=== PATIENT | male | born 1985 | race Caucasian/White ===

== ENCOUNTER 2016-08-27 03:27 | Emergency (ER) | payer BC, OTHER ==
[~2016-08-27] VITALS: Ht 172.7 cm; Wt 100.5 kg
[~2016-08-27 03:27] MED LIST: ASPI-650 PO; RANI-347 PO
[2016-08-27 03:29] VITALS: Ht 172.7 cm; Wt 100.5 kg
[2016-08-27] MEDS ORDERED: IBUP800T25 PO (03:42)
[2016-08-27] MEDS ORDERED: CYCL-319 PO (03:42)
--- NOTE | 2016-08-27 03:47 | ERD ---
ER Documentation Chief Complaint Date/Time DATE: 08/27/16 TIME: 03:46 Chief Complaint low back pain x 1 week, denies in jury HPI This is a 31-year-old male who has history of diabetes type 2 presenting to emergency department complaining of lumbar back pain for the past week. Patient rates the pain 9 out of 10 with certain movements. Patient states that he is able to ambulate. He denies any trauma or injury. Patient states that he tried ibuprofen 600 mg an hour prior to being seen without any relief.. Denies bladder or bowel incontinence. Denies any saddle anesthesia ROS All systems reviewed and are negative except as per history of present illness. Medications Home Meds Active Scripts Cyclobenzaprine Hcl* (Cyclobenzaprine Hcl*) 10 Mg Tablet, 10 MG PO Q8 Y for MUSCLE SPASMS, #30 TAB Prov:NADEGE ESTEVEZ PA-C 08/27/16 Ibuprofen* (Ibuprofen*) 800 Mg Tab, 800 MG PO Q6H Y for PAIN, #30 TAB Prov:NADEGE ESTEVEZ PA-C 08/27/16 Reported Medications Aspirin (Aspirin) 81 Mg Tablet, 81 MG PO 12/17/11 Ranitidine Hcl* (Ranitidine Hcl*) 75 Mg Tablet, 75 MG PO DAILY 12/17/11 Allergies Allergies: Coded Allergies: No Known Allergy (Unverified , 12/17/11) PMhx/Soc Medical and Surgical Hx: pt denies Medical Hx, pt denies Surgical Hx History of Surgery: No Anesthesia Reaction: No Hx Neurological Disorder: No Hx Respiratory Disorders: No Hx Cardiac Disorders: No Hx Psychiatric Problems: No Hx Miscellaneous Medical Probl: No Hx Alcohol Use: Yes (ON OCCASSION ) Hx Substance Use: No Hx Tobacco Use: Yes (ON OCCASSION ) Smoking Status: Current some day smoker Physical Exam Vitals Vital Signs Date Time Temp Pulse Resp B/P Pulse Ox O2 Delivery O2 Flow Rate FiO2 08/27/16 03:29 98.3 93 20 144/83 99 Physical Exam GENERAL: WD/WN, in no apparent distress, non-toxic appearing HENT: NC/AT EYES: Conjunctiva normal NECK: Supple PULM: Normal labored breathing CV: Good capillary refill GI: Non-distended, no guarding BACK: no deformities noted, normal spinal curvature, TTP on right lumbar region , non-tender on spine midline, EXT: No clubbing, cyanosis, or edema NEURO: Moves on all fours, sensation intact, normal gait SKIN: intact PSYCH: Normal mood Results 24 hrs Current Medications Medications (Trade) Dose Ordered Sig/Eric Route PRN Reason Start Time Stop Time Status Last Admin Dose Admin Diazepam (Valium) 10 mg ONCE ONCE PO 08/27/16 04:00 08/27/16 04:01 Procedures/MDM 31-year-old male diabetes type 2 presents to the ER with lumbar back pain and muscle spasms, low suspicion for spinal abscess, vertebral fracture, cauda equina syndrome, spinal stenosis due to physical examination. Patient has taken ibuprofen 600 mg prior to being seen, valium was provided in the ED for muscle relaxation. Patient is neurovascularly intact and stable to be discharged home. Prescriptions ibuprofen and Flexeril was given to patient, discussed to return to the ED if not improving as expected or follow-up with a primary care physician. Patient understood and agreed with this plan. Departure Diagnosis: Primary Impression: Lumbar back sprain Condition: Stable Patient Instructions: Causes of Lumbar (Low Back) Pain, Back Exercises, Lumbar Additional Instructions: FOLLOW UP WITH YOUR PRIMARY CARE PHYSICIAN TOMORROW.Return to this facility if you are not improving as expected. Take all medicines as directed. You have been given a medicine which may cause drowsiness.DO NOT DRIVE OR OPERATE DANGEROUS MACHINERY while taking this medicine! Return to this facility if you are not improving as expected. NADEGE ESTEVEZ PA-C Aug 27, 2016 03:47
[2016-08-27] MEDS ORDERED: DIAZEPAM 5 MG TAB PO ONE (04:00)
== END 2016-08-27 03:50 | disposition home or self-care (01) ==
LOC: FTE 03:27
DX: S33.5XXA Sprain of ligaments of lumbar spine, initial encounter (principal); E11.9 Type 2 diabetes mellitus without complications; F17.210 Nicotine dependence, cigarettes, uncomplicated; X58.XXXA Exposure to other specified factors, initial encounter; Y92.9 Unspecified place or not applicable; Z79.82 Long term (current) use of aspirin
CPT/HCPCS: 99283